=== PATIENT | female | born 2000 | race Caucasian/White ===

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

== ENCOUNTER 2018-12-04 18:47 | Emergency (ER) | payer OTHER ==
[2018-12-04 18:53] VITALS: BP 104/54
[2018-12-04] MEDS ORDERED: DIPHENHYDRAMINE HCL 50 MG/ML VIAL IV ONE (21:30)
[2018-12-04] MEDS ORDERED: DEXAMETHASONE SOD PHOSPHATE INJ 4 MG/1 ML VIAL IV ONE (21:30)
[2018-12-04] MEDS ORDERED: METOCLOPRAMIDE HCL INJ/PF 10 MG/2 ML SDV IV ONE (21:30)
[2018-12-04] MEDS ORDERED: NORMAL SALINE 1000 ML 1,000 ML IV ONE (21:31)
--- NOTE | 2018-12-04 21:34 | ER Document Report ---
ED Medical Screen (RME) - General Chief Complaint: Headache Stated Complaint: HEADACHE Time Seen by Provider: 12/04/18 21:26 Primary Care Provider: FANG RAZA NP [Primary Care Provider] - Follow up as needed Notes: 18-year-old female with history of "migraines". Normally handles these at home. Not taking any prescriptions. Sharp pain at the base of skull radiates up the head and around back to the eyes with severe light sensitivity and noise sensitivity, dizziness and vomiting.. No flulike illness. No neck stiffness. No rash I have treated and performed a rapid initial assessment of this patient. A comprehensive ED assessment and evaluation of the patient, analysis of test results and completion of medical decision making process will be conducted by additional ED providers. PHYSICAL EXAMINATION: GENERAL: No acute distress. Nontoxic LUNGS: No respiratory distress HEART: Well-perfused Extremities: No cyanosis, clubbing, or edema b/l. NEUROLOGICAL: No focal deficits, PERRLA, EOMI PSYCH: Normal mood, normal affect. TRAVEL OUTSIDE OF THE [place] IN LAST 30 DAYS: No - Related Data Allergies/Adverse Reactions: albuterol Allergy (Verified 12/04/18 18:49) ketorolac [From Toradol] Allergy (Verified 12/04/18 18:49) Past Medical History Pulmonary Medical History: Reports: Hx Asthma Neurological Medical History: Reports: Hx Migraine Renal/ Medical History: Denies: Hx Peritoneal Dialysis Physical Exam - Vital signs Vitals: Temp Pulse Resp BP Pulse Ox 98.0 F 69 16 104/54 L 98 12/04/18 18:52 12/04/18 18:52 12/04/18 18:52 12/04/18 18:52 12/04/18 18:52 Course - Vital Signs Vital signs: Temp Pulse Resp BP Pulse Ox 98.0 F 69 16 104/54 L 98 12/04/18 18:52 12/04/18 18:52 12/04/18 18:52 12/04/18 18:52 12/04/18 18:52 Doctor's Discharge - Discharge Referrals: FANG RAZA NP [Primary Care Provider] - Follow up as needed
--- NOTE | 2018-12-04 22:59 | ER Document Report ---
ED General - General Chief Complaint: Headache Stated Complaint: HEADACHE Time Seen by Provider: 12/04/18 21:26 Primary Care Provider: FANG RAZA NP [Primary Care Provider] - Follow up as needed Mode of Arrival: Ambulatory Information source: Patient TRAVEL OUTSIDE OF THE [place] IN LAST 30 DAYS: No - HPI Patient complains to provider of: Migraine headache Onset: Other - 3 to 4 days Onset/Duration: Persistent Quality of pain: Sharp Severity: Severe Pain Level: 5 Associated symptoms: denies: Chills, Fever Exacerbated by: Other - Light and noise Relieved by: Denies Similar symptoms previously: No Recently seen / treated by doctor: No Notes: 18-year-old female with "migraines" here with a migraine headache for 3 to 4 days. Feels similar to others but has not responded to the difficult therapy. Fevers and chills. No flulike illness. No neck stiffness or rash. - Related Data Allergies/Adverse Reactions: albuterol Allergy (Verified 12/04/18 18:49) ketorolac [From Toradol] Allergy (Verified 12/04/18 18:49) Past Medical History - General Information source: Patient - Social History Smoking Status: Never Smoker Chew tobacco use (# tins/day): No Drug Abuse: None Family History: None, Reviewed & Not Pertinent Patient has suicidal ideation: No Patient has homicidal ideation: No Pulmonary Medical History: Reports: Hx Asthma Neurological Medical History: Reports: Hx Migraine Renal/ Medical History: Denies: Hx Peritoneal Dialysis Review of Systems - Review of Systems Notes: Constitutional: No fevers. No chills. EENT: No eye redness. No eye pain. No ear pain. No sore throat. Cardiovascular: No chest pain. No palpitations. Respiratory: No cough. No shortness of breath. No respiratory distress. Gastrointestinal: No abdominal pain. No nausea, vomiting, or diarrhea. Genitourinary: Atraumatic. No lesions. No pain. No discharge. Musculoskeletal: Atraumatic. No swelling. No deformities. Skin: No rash or lesions. Lymphatic: No swollen lymph nodes. Neurologic: Positive for headache Psychiatric: No suicidal or homicidal ideation. Physical Exam - Vital signs Vitals: Temp Pulse Resp BP Pulse Ox 98.0 F 69 16 104/54 L 98 12/04/18 18:52 12/04/18 18:52 12/04/18 18:52 12/04/18 18:52 12/04/18 18:52 - Notes Notes: General: Well-developed, well-nourished. In no acute distress. Non-toxic appearing. Cardiac: Well-perfused. Regular rate and rhythm. No murmurs, rubs, or gallops. Pulmonary: No respiratory distress. No cyanosis. Bilateral lung fiels are clear to auscultation. Abdominal: Non-distended. Non-rigid. Bowels sounds are present in all four quadrants. No guarding or rebound. HEENT: Head is atraumatic. Conjunctivae not reddened. No tearing. PERRL. EOMI. Orbits atraumatic. No periorbital swelling or erythema. Oropharynx is without erythema, swelling, or exudates. Neck: Supple. No adenopathy. No meningismus. Dermatologic: Warm with good turgor. No rash. Atraumatic. Chest: Atraumatic. No chest wall tenderness to palpation. Musculoskeletal: Moves all extremities well. No range of motion deficits. no muscular or joint tenderness. No paraspinal muscle tenderness. no midline spinal tenderness or step-off. Genitourinary: Examination deferred Neurologic: No gross neurologic deficits. Psychiatric: Normal mood. Course - Re-evaluation Re-evalutation: 12/04/18 22:57 Apparently patient is feeling better after cocktail. We will send her home with Reglan. - Vital Signs Vital signs: Temp Pulse Resp BP Pulse Ox 98.0 F 69 16 104/54 L 98 12/04/18 18:52 12/04/18 18:52 12/04/18 18:52 12/04/18 18:52 12/04/18 18:52 Discharge - Discharge Clinical Impression: Headache Qualifiers: Headache type: unspecified Headache chronicity pattern: unspecified pattern Intractability: not intractable Qualified Code(s): R51 - Headache Condition: Good Disposition: HOME, SELF-CARE Instructions: Antinausea Medication ([facility]), Use of Diphenhydramine, Headache ([facility]), Reglan ([facility]) Prescriptions: Metoclopramide HCl [Reglan 10 mg Tablet] 1 tab PO Q6HP PRN #12 tablet PRN Reason: Referrals: FANG RAZA NP [Primary Care Provider] - Follow up as needed
== END 2018-12-05 00:10 | disposition home or self-care (01) ==
LOC: ER 18:47
DX: R51 Headache (principal); J45.909 Unspecified asthma, uncomplicated; Z86.69 Personal history of other diseases of the nervous system and sense organs; Z88.8 Allergy status to other drugs, medicaments and biological substances
CPT/HCPCS: 99284; 96361; 96374; 96375; J1100; J1200; J2765; J7030